=== PATIENT | female | born 1985 | race African-American/Black ===

== ENCOUNTER 2017-05-18 14:59 | Emergency (ER) | payer OTHER ==
[~2017-05-18] VITALS: Ht 175.3 cm; Wt 81.6 kg
[2017-05-18] MEDS ORDERED: IBUPROFEN 800 MG TAB PO ONE (15:45)
[2017-05-18 15:57] VITALS: BP 122/74
== END 2017-05-18 18:05 | disposition home or self-care (01) ==
LOC: EDSEX 14:59 → EDBD 14:59 → ER 14:59
DX: S86.911A Strain of unspecified muscle(s) and tendon(s) at lower leg level, right leg, initial encounter (principal); Z88.1 Allergy status to other antibiotic agents; Z88.0 Allergy status to penicillin; V43.32XA Unspecified car occupant injured in collision with other type car in nontraffic accident, initial encounter; Y93.89 Activity, other specified; Y92.89 Other specified places as the place of occurrence of the external cause; Y99.8 Other external cause status
CPT/HCPCS: 72170; 73562

== ENCOUNTER 2018-08-08 10:14 | Emergency (ER) | payer OTHER ==
[~2018-08-08] VITALS: Ht 175.3 cm; Wt 81.6 kg
[2018-08-08 11:09] LABS: Urine Bacteria FEW /hpf (None Seen); Urine Blood Negative /uL (Negative); Urine Mucus FEW (None Seen); Urine Specific Gravity 1.017 (1.001-1.035); Urine WBC 1 /hpf (0 - 5)
[2018-08-08 11:16] LABS: Basophils # (auto) 0 uL; Basophils % (auto) 0.9 % (0.0-2.0); Eosinophils # (auto) 0.1 uL; Eosinophils % (auto) 2.8 % (0.0-7.0); Hematocrit 39.7 % (36.0-46.0); Hemoglobin 13.3 g/dL (12.2-16.2); Lymphocytes # (auto) 1.8 uL; Lymphocytes % (auto) 34.2 % (10.0-50.0); Mean Corpuscular Hemoglobin 29.8 pg (28.0-32.0); Mean Corpuscular Hgb Conc. 33.6 g/dL (32.0-36.0); Mean Corpuscular Volume 88.7 fL (80.0-100.0); Monocytes # (auto) 0.4 uL; Neutrophils # (auto) 2.9 uL; Neutrophils % (auto) 54.1 % (37.0-80.0); Nucleated Red Blood Cells % 0.1 %; Platelet Count (auto) 189 10^3/uL (140-450); Red Blood Cells 4.47 10^6/uL (4.0-5.20); Red Cell Distribution Width 13.8 % (11.8-14.3); White Blood Cell 5.3 10^3/uL (4.4-10.8)
[2018-08-08 11:28] LABS: Albumin 3.7 g/dL (3.4-5.0); Calcium 8.5 mg/dL (8.5-10.1)
[2018-08-08 11:31] LABS: Bilirubin, Total 0.5 mg/dL (0.2-1.0); Total Protein 7.3 g/dL (6.4-8.2)
[2018-08-08 12:18] VITALS: BP 132/32
== END 2018-08-08 13:08 | disposition home or self-care (01) ==
LOC: ER 10:14
DX: R10.32 Left lower quadrant pain (principal); Z88.0 Allergy status to penicillin
CPT/HCPCS: 36415; 74176; 80053; 81001; 81025; 82150; 83690; 85025

== ENCOUNTER → 2019-05-27 | Emergency (ER) | payer OTHER ==
[~2019-05-27] VITALS: Ht 175.3 cm; Wt 89.8 kg
[~2019-05-27] MED LIST: SODIUM CHLORIDE 0.9% 1,000 ML IV ONE; cefTRIAXone 1GM/50ML D5W 50 ML IV ONE
[2019-05-27 20:52] LABS: Urine Bacteria FEW /hpf (None Seen); Urine Blood Negative /uL (Negative); Urine Mucus FEW (None Seen); Urine Specific Gravity 1.011 (1.001-1.035); Urine WBC 2 /hpf (0 - 5)
[2019-05-27 21:39] LABS: Basophils # (auto) 0 10 ^3/uL (0-0.2); Basophils % (auto) 0.4 % (0.0-2.0); Eosinophils # (auto) 0 10 ^3/uL (0-0.8); Eosinophils % (auto) 0.2 % (0.0-7.0); Hematocrit 40.3 % (36.0-46.0); Hemoglobin 13.5 g/dL (12.2-16.2); Lymphocytes # (auto) 0.9 10 ^3/uL (0.4-5.4); Lymphocytes % (auto) 7.1 % (10.0-50.0); Mean Corpuscular Hemoglobin 29.9 pg (28.0-32.0); Mean Corpuscular Hgb Conc. 33.5 g/dL (32.0-36.0); Mean Corpuscular Volume 89.4 fL (80.0-100.0); Monocytes # (auto) 0.8 10 ^3/uL (0-1.3); Monocytes % (auto) 6.3 % (0.0-12.0); Neutrophils # (auto) 10.4 10 ^3/uL (1.6-8.6); Platelet Count (auto) 198 10^3/uL (140-450); Red Cell Distribution Width 13.9 % (11.8-14.3); White Blood Cell 12.1 10^3/uL (4.4-10.8)
[2019-05-27 21:42] LABS: Albumin 3.6 g/dL (3.4-5.0); BUN/Creatinine Ratio 9.3; Calcium 8.7 mg/dL (8.5-10.1); Potassium 3.6 mmol/L (3.5-5.1)
[2019-05-27 21:45] LABS: Bilirubin, Total 0.5 mg/dL (0.2-1.0); Total Protein 7.7 g/dL (6.4-8.2)
[2019-05-27 23:34] VITALS: BP 106/46
== END | disposition home or self-care (01) ==
LOC: EDUNIT# 18:27 → EDBD 18:45 → ER 18:54
DX: R06.02 Shortness of breath (principal); R50.9 Fever, unspecified; R11.0 Nausea; R07.0 Pain in throat; R51 Headache; R56.9 Unspecified convulsions
CPT/HCPCS: 36415; 70450; 71045; 80053; 81001; 85025; 87040; 87070; 87804; 87880; 96365; 99285; J0696

== ENCOUNTER 2019-05-31 19:04 | Emergency (ER) | payer SELFPAY ==
[~2019-05-31] VITALS: Ht 177.8 cm; Wt 88.5 kg
[2019-05-31 20:21] LABS: Basophils # (auto) 0.1 10 ^3/uL (0-0.2); Basophils % (auto) 1.4 % (0.0-2.0); Eosinophils # (auto) 0.2 10 ^3/uL (0-0.8); Eosinophils % (auto) 3.3 % (0.0-7.0); Hematocrit 43.4 % (36.0-46.0); Lymphocytes # (auto) 1.8 10 ^3/uL (0.4-5.4); Lymphocytes % (auto) 24.2 % (10.0-50.0); Mean Corpuscular Hemoglobin 30.5 pg (28.0-32.0); Mean Corpuscular Hgb Conc. 34.5 g/dL (32.0-36.0); Mean Corpuscular Volume 88.4 fL (80.0-100.0); Monocytes # (auto) 0.5 10 ^3/uL (0-1.3); Neutrophils # (auto) 4.9 10 ^3/uL (1.6-8.6); Neutrophils % (auto) 65.1 % (37.0-80.0); Platelet Count (auto) 258 10^3/uL (140-450); Red Blood Cells 4.91 10^6/uL (4.0-5.20); Red Cell Distribution Width 13.9 % (11.8-14.3); White Blood Cell 7.6 10^3/uL (4.4-10.8)
[2019-05-31 20:35] LABS: Albumin 4.2 g/dL (3.4-5.0); Calcium 9.4 mg/dL (8.5-10.1); Potassium 3.9 mmol/L (3.5-5.1)
[2019-05-31 20:38] LABS: Bilirubin, Total 0.3 mg/dL (0.2-1.0); Total Protein 8.3 g/dL (6.4-8.2)
[2019-05-31] MEDS ORDERED: IOHEXOL 350 MG/ML 100ML IJ ONE (21:46)
[2019-06-01] MEDS ORDERED: cefTRIAXone 1GM/50ML D5W 50 ML IV ONE (00:30)
[2019-06-01] MEDS ORDERED: IPRATROPIUM BROM 0.5 MG/2.5ML INH SOL NEB ONE (00:45)
[2019-06-01] MEDS ORDERED: ALBUTEROL SULF 2.5 MG/0.5ML(0.5%) NEB SOLN NEB ONE (00:45)
[2019-06-01 00:55] VITALS: BP 110/71
[2019-06-01] MEDS ORDERED: cefTRIAXone W LIDOCAINE 1 GM IM IM ONE (01:00)
[2019-06-01] MEDS ORDERED: cefTRIAXone SOD 1,000 MG VL ONE (01:02)
== END 2019-06-01 01:32 | disposition home or self-care (01) ==
LOC: ER 19:04
DX: J01.40 Acute pansinusitis, unspecified (principal); J45.909 Unspecified asthma, uncomplicated; Z98.51 Tubal ligation status
CPT/HCPCS: 36415; 71045; 71275; 80053; 84702; 85025; 85379; 87070; 87804; 87880; 94640; 96372; 99285; Q9967

== ENCOUNTER 2019-07-01 16:44 | Inpatient (IN) | payer OTHER ==
[~2019-07-01] VITALS: Ht 175.3 cm; Wt 91.0 kg
[2019-07-01] MEDS ORDERED: LORazepam 2MG/ML-1ML VIAL IV ONE (18:00)
[2019-07-01 18:14] LABS: Basophils # (auto) 0 10 ^3/uL (0-0.2); Basophils % (auto) 0.5 % (0.0-2.0); Eosinophils # (auto) 0 10 ^3/uL (0-0.8); Eosinophils % (auto) 0.4 % (0.0-7.0); Hematocrit 40.8 % (36.0-46.0); Hemoglobin 13.5 g/dL (12.2-16.2); Lymphocytes # (auto) 0.8 10 ^3/uL (0.4-5.4); Lymphocytes % (auto) 10.4 % (10.0-50.0); Mean Corpuscular Hemoglobin 29.3 pg (28.0-32.0); Mean Corpuscular Hgb Conc. 33.2 g/dL (32.0-36.0); Mean Corpuscular Volume 88.4 fL (80.0-100.0); Monocytes # (auto) 0.4 10 ^3/uL (0-1.3); Monocytes % (auto) 6.1 % (0.0-12.0); Neutrophils % (auto) 82.6 % (37.0-80.0); Nucleated Red Blood Cells % 0.1 %; Platelet Count (auto) 221 10^3/uL (140-450); Red Blood Cells 4.61 10^6/uL (4.0-5.20); Red Cell Distribution Width 13.5 % (11.8-14.3); White Blood Cell 7.3 10^3/uL (4.4-10.8)
[2019-07-01 18:42] LABS: Albumin 3.5 g/dL (3.4-5.0); Calcium 8.8 mg/dL (8.5-10.1)
[2019-07-01 18:46] LABS: Bilirubin, Total 0.5 mg/dL (0.2-1.0); Total Protein 7.2 g/dL (6.4-8.2)
[2019-07-01] MEDS ORDERED: LORazepam 2MG/ML-1ML VIAL IV PRN ×3 (22:30→22:45)
[2019-07-01] MEDS ORDERED: TEMAZEPAM 15 MG CAP PO PRN (22:45)
[2019-07-01] MEDS ORDERED: ONDANSETRON HCL 4 MG/2 ML VIAL IV PRN (22:45)
--- NOTE | 2019-07-01 23:45 | NUR ---
MS admit from ER CANDICE MANUEL admitted to tele/MS after NO SBAR WAS received. Patient oriented to STEPHANY tinoco RN, unit, room, bed, and unit policies regarding patient care and visiting hours. Patient is A/O x4, laceration to the tongue, on RA, ambulatory with standby assist, SEIZURE PRECAUTIONS in place. Call light is within reach, side rails up x2, bed alarm is on. Patient weighed by bedscale and encouraged to call if they need something. All questions and concerns addressed, patient verbalized understanding.
[2019-07-01] MEDS: ACETAMINOPHEN 325 MG TAB PO PRN (23:52)
[2019-07-02] MEDS ORDERED: ALBU2TAB4 INH (00:07)
--- NOTE | 2019-07-02 03:00 | NUR ---
Wound photo taken of tongue.
--- NOTE | 2019-07-02 03:05 | NUR ---
MRSA Nares/ UA and UDS Urinalysis/Urine drug screen and MRSA Nares collected and sent to lab via [facility] system.
[2019-07-02 03:38] LABS: Alcohol, Urine < 3.0 mg/dL (0-5); Amphetamine Screen, Urine NEGATIVE (NEGATIVE); Barbiturate Scree,Urine NEGATIVE (NEGATIVE); Benzodiazephine Screen, Urine NEGATIVE (NEGATIVE); Cannabinoid Screen, Urine NEGATIVE (NEGATIVE); Cocaine Screen, Urine NEGATIVE (NEGATIVE); Opiate Scree,Urine NEGATIVE (NEGATIVE); Phencyclidine Screen, Urine NEGATIVE (NEGATIVE)
[2019-07-02 03:41] LABS: Urine Bacteria FEW /hpf (None Seen); Urine Blood Negative /uL (Negative); Urine Hyaline Cast FEW /lpf (0 - 2); Urine Mucus FEW (None Seen); Urine Specific Gravity 1.012 (1.001-1.035); Urine WBC 1 /hpf (0 - 5)
[2019-07-02 05:00] VITALS: BP 90/55
[2019-07-02 05:56] LABS: Calcium 8.4 mg/dL (8.5-10.1); Potassium 3.3 mmol/L (3.5-5.1)
--- NOTE | 2019-07-02 07:15 | NUR ---
Opening Note Upon entering patient room, patient was relaxing with HOB at 30 degrees. Safety precautions in place with rails up and padded, suctioning equipment at bedside, bed at lowest position, call light and phone within reach. Discussed POC with patient.
[2019-07-02 08:32] VITALS: BP 80/46
[2019-07-02] MEDS: levETIRAcetam 500 MG TAB PO SCH ×2 (09:43→21:56)
[2019-07-02] MEDS: FAMOTIDINE 20 MG TAB PO SCH ×2 (09:43→21:56)
[2019-07-02] MEDS ORDERED: LORazepam 2MG/ML-1ML VIAL IV ONE (10:00)
[2019-07-02] MEDS ORDERED: POTASSIUM CHL 20 Meq TABLET PO ONE (10:00)
--- NOTE | 2019-07-02 10:33 | NUR ---
Patient taken down for MRI
--- NOTE | 2019-07-02 11:05 | NUR ---
Patient back to room
--- NOTE | 2019-07-02 11:50 | NUR ---
EEG in progress at bedside
[2019-07-02 13:36] VITALS: BP 106/65
--- NOTE | 2019-07-02 13:36 | NUR ---
EEG-ELECTROENCEPHALOGRAM COMPLETED ON 07/02/2019.
--- NOTE | 2019-07-02 15:30 | NUR ---
Patient moved to room 223B with all personal belongings
[2019-07-02 17:09] VITALS: BP 92/55
--- NOTE | 2019-07-02 19:05 | NUR ---
Closing Note Report given to shift mgr RN. No signs or symptoms of distress noted at this time.
--- NOTE | 2019-07-02 19:33 | NUR ---
RECEIVED PATIENT FROM DAY SHIFT RN. PATIENT RESTING IN BED. NO S/S OF DISTRESS NOTED. C/O SORE ON HER TONGUE, THERE'S SCAB ON THE LEFT OF TONGUE. PATIENT C/O DIZZINESS AND THOUGHT SHE MIGHT HAVE SEIZURE AGAIN AND REQUESTED SEIZURE MEDICATION. CHECKED BP 105/64, INSTRUCTED PATIENT ON THE S/S OF SEIZURE AND HER MEDICATION SCHEDULE OF SEIZURE, INSTRUCTED PATIENT TO STAY IN BED FOR SAFETY AND CALL FOR HELP. PATIENT VERBALIZED UNDERSTANDING. POC INSTRUCTED AND ENCOURAGED PATIENT TO CALL FOR ADDICTION NURSE IF NEEDED. BED IN LOWEST POSITION WITH SIDE RAILS UP X 2. CALL ROSAS WITHIN REACH. ALARM ON. CONTINUE TO MONITOR FOR CHANGES Q1H AND PRN.
[2019-07-02 21:10] VITALS: BP 105/64
--- NOTE | 2019-07-02 22:46 | NUR ---
INSTRUCTED PATIENT ON S/S OF SIDE EFFECTS OF MEDICATIONS. CONTINUE TO MONITOR.
--- NOTE | 2019-07-03 03:16 | NUR ---
PATIENT SLEEPING. NO S/S OF DISTRESS NOTED. CONTINUE CARE.
[2019-07-03 05:00] VITALS: BP 111/66
--- NOTE | 2019-07-03 07:30 | NUR ---
Opening Note Patient AOx4. Patient awake and sitting comfortably supine in bed w/ HOB at 30 degrees. Discussed POC with patient. Safety precautions in place. Bed at lowest level, rails padded and up, call light and phone within reach. No signs of distress.
[2019-07-03 08:00] VITALS: BP 102/59
[2019-07-03 09:00] VITALS: BP 102/59
[2019-07-03] MEDS: ACETAMINOPHEN 325 MG TAB PO PRN (09:00)
[2019-07-03] MEDS: FAMOTIDINE 20 MG TAB PO SCH (09:00)
[2019-07-03] MEDS: levETIRAcetam 500 MG TAB PO SCH (09:01)
--- NOTE | 2019-07-03 09:10 | NUR ---
Pain Management Patient complains of mild neck pain and requested Tylenol. Patient given Tylenol PRN at this time.
[2019-07-03 13:00] VITALS: BP 97/59
--- NOTE | 2019-07-03 14:00 | NUR ---
Discharge Discharge instructions given as ordered. Encourage to follow up with PMD as instructed. All questions and concerns addressed. Patient verbalized understanding. Medication reconciliation form completed and copy given to patient. IV removed with catheter intact, pressure dressing applied. Patient taken to vehicle via wheelchair with all personal belongings, accompanied by staff. No signs or symptoms of distress noted at this time.
== END 2019-07-03 14:00 | disposition home or self-care (01) | DRG 101 ==
LOC: EDBD 16:44 → ER 16:44 → CENTRAL 16:45
PROVIDERS: ADMIT Nurse Practitioner; ATTEND Internal Medicine
DX: G40.109 Localization-related (focal) (partial) symptomatic epilepsy and epileptic syndromes with simple partial seizures, not intractable, without status epilepticus (principal); R44.2 Other hallucinations; G93.0 Cerebral cysts; R51 Headache; E66.9 Obesity, unspecified; J45.909 Unspecified asthma, uncomplicated; Z72.820 Sleep deprivation; Z68.27 Body mass index [BMI] 27.0-27.9, adult
CPT/HCPCS: 36415; 70450; 70551; 80048; 80053; 80307; 81001; 82962; 84702; 85025; 87081; 95819; 96365; 96375; G0378; J2405; J7060

== ENCOUNTER → 2020-04-08 | Outpatient (CLI) | payer OTHER ==
[~2020-04-08] MED LIST changes: +ALBU2TAB4 INH; -SODIUM CHLORIDE 0.9% 1,000 ML IV ONE; -cefTRIAXone 1GM/50ML D5W 50 ML IV ONE
[2020-04-08 11:54] LABS: Basophils # (auto) 0 10 ^3/uL (0-0.2); Basophils % (auto) 0.7 % (0.0-2.0); Eosinophils # (auto) 0.2 10 ^3/uL (0-0.8); Eosinophils % (auto) 3.7 % (0.0-7.0); Hematocrit 39.6 % (36.0-46.0); Hemoglobin 13.7 g/dL (12.2-16.2); Lymphocytes # (auto) 1.7 10 ^3/uL (0.4-5.4); Lymphocytes % (auto) 34.7 % (10.0-50.0); Mean Corpuscular Hemoglobin 30.3 pg (28.0-32.0); Mean Corpuscular Hgb Conc. 34.6 g/dL (32.0-36.0); Mean Corpuscular Volume 87.6 fL (80.0-100.0); Monocytes # (auto) 0.4 10 ^3/uL (0-1.3); Monocytes % (auto) 8.4 % (0.0-12.0); Neutrophils # (auto) 2.6 10 ^3/uL (1.6-8.6); Neutrophils % (auto) 52.5 % (37.0-80.0); Nucleated Red Blood Cells % 0.1 %; Platelet Count (auto) 233 10^3/uL (140-450); Red Blood Cells 4.52 10^6/uL (4.0-5.20); Red Cell Distribution Width 13.1 % (11.8-14.3); White Blood Cell 4.9 10^3/uL (4.4-10.8)
[2020-04-08 12:32] LABS: Follicle Stimulating Hormone 5.67 IU/L (SEE BELOW); Leuteinizing Hormone 6.8 IU/L
== END | disposition home or self-care (01) ==
LOC: LAB 11:33
PROVIDERS: ATTEND Obstetrics & Gynecology
DX: R10.9 Unspecified abdominal pain (principal)
CPT/HCPCS: 36415; 82670; 83001; 83002; 84403; 84443; 85025